=== PATIENT | male | born 1945 | race Caucasian/White ===

== ENCOUNTER → 2016-11-12 | Outpatient (CLI) | payer OTHER, MEDICARE | LOC: BMCIMAGING 16:23 | PROVIDERS: ATTEND Emergency Medicine | DX: T14.90 Injury, unspecified (principal); W18.39XA Other fall on same level, initial encounter; Y93.02 Activity, running ==

== ENCOUNTER → 2016-11-15 | Outpatient (CLI) | payer OTHER, MEDICARE | LOC: BMCIMAGING 09:37 | PROVIDERS: ATTEND Family Medicine | DX: M25.531 Pain in right wrist (principal); M19.041 Primary osteoarthritis, right hand ==

== ENCOUNTER 2017-01-24 09:40 | Day surgery (SDC) | payer OTHER, MEDICARE ==
[2017-01-24] MEDS ORDERED: ceFAZolin 2 GM/DEXTROSE 100 ML IV ONE (10:01)
[2017-01-24] MEDS ORDERED: LR 1,000 ML IV ONE (10:02)
[2017-01-24] MEDS ORDERED: LIDOCAINE 1% 2 ML INJ ID PRN (10:02)
[2017-01-24] MEDS ORDERED: BUPIVACAINE/EPI 0.5% 30 ML SDV ONE (10:20)
[2017-01-24] MEDS ORDERED: PROPOFOL 200 MG/20 ML VIAL ONE (10:24)
[2017-01-24] MEDS ORDERED: fentaNYL 100 MCG/2 ML INJ ONE ×3 (10:24→13:27)
[2017-01-24] MEDS ORDERED: DEXAMETHASONE 4 MG/ML VIAL ONE (10:24)
[2017-01-24] MEDS ORDERED: LIDOCAINE 2% 5 ML SDV ONE (10:25)
[2017-01-24] MEDS ORDERED: ONDANSETRON 4 MG/2 ML VIAL ONE (10:25)
--- NOTE | 2017-01-24 10:51 | PDHPUP ---
History & Physical Update H&P update statement: This history and physical update is based on an assessment of the patient which was completed after admission or registration (within 24 hours), but prior to the surgery/procedure.
--- NOTE | 2017-01-24 10:52 | PDANEPAE ---
ANE Past Medical History - Cardiovascular History Hx Hypertension: No Hx Arrhythmias: No Hx Chest Pain: No Hx Coronary Artery / Peripheral Vascular Disease: No Hx CHF / Valvular Disease: No Hx Palpitations: No Cardiovascular History Comment: murmur - Pulmonary History Hx COPD: No Hx Asthma/Reactive Airway Disease: No Hx Recent Upper Respiratory Infection: No Hx Oxygen in Use at Home: No Hx Sleep Apnea: No Sleep Apnea Screening Result - Last Documented: Negative - Neurologic History Hx Cerebrovascular Accident: No Hx Seizures: No Hx Dementia: No - Endocrine History Hx Diabetes: No Hypothyroid: No Hyperthyroid: No Obesity: no - Renal History Hx Renal Disorders: No - Liver History Hx Hepatic Disorders: No - Neurological & Psychiatric Hx Hx Neurological and Psychiatric Disorders: No - Cancer History Hx Cancer: No - Congenital Disorder History Hx Congenital Disorders: No - GI History GERD: no Hx Gastrointestinal Disorders: No - Other Health History Other Health History: dyslipidemia - Chronic Pain History Chronic Pain: No - Surgical History Prior Surgeries: colonscopy, rotator cuff repair 20yrs ago. fx humerus 10 yrs ago ANE Review of Systems Review of Systems: - Exercise capacity METS (RN): 6 METS ANE Patient History - Allergies Allergies/Adverse Reactions: scallops Allergy (Verified 01/24/17 10:14) Sulfa (Sulfonamide Antibiotics) Allergy (Verified 01/08/17 11:15) - Home Medications Home Medications: Aspirin EC 81 mg (*) 01/08/17 [Last Taken 01/17/17] Atorvastatin Calcium 01/08/17 [Last Taken 01/23/17] Multi-Vitamin Daily 01/08/17 [Last Taken 01/17/17] Maurepas 3 1,000 mg Softgel 01/08/17 [Last Taken 01/17/17] - NPO status NPO Since - Liquids (Date): 01/23/17 NPO Since - Liquids (Time): 23:30 NPO Since - Solids (Date): 01/23/17 NPO Since - Solids (Time): 23:30 - Anes Hx Anes Hx: no prior problems - Smoking Hx Smoking Status: Never smoked - Alcohol Use Alcohol Use: Rarely - Family Anes Hx Family Anes Hx: neg - N/A Family Hx Anesthesia Complications: none ANE Labs/Vital Signs - Vital Signs Blood Pressure: 143/80 Heart Rate: 56 Respiratory Rate: 14 O2 Sat (%): 96 Height: 172.72 cm Weight: 68.039 kg ANE Physical Exam - Airway Neck exam: FROM Mallampati Score: Class 2 Mouth exam: normal dental/mouth exam, olivo - Pulmonary Pulmonary: no respiratory distress, no rales or rhonchi, clear to auscultation - Cardiovascular Cardiovascular: regular rate and rhythym, systolic murmur - ASA Status ASA Status: II ANE Anesthesia Plan Anesthesia Plan: GA w LMA Total IV Anesthesia: No
[2017-01-24] MEDS ORDERED: OXYCODONE/APAP 5/325 TAB PO PRN (10:53)
[2017-01-24] MEDS ORDERED: PROMETHAZINE HCL 25 MG/ML INJ IVP PRN (10:53)
[2017-01-24] MEDS ORDERED: ACETAMINOPHEN 500 MG TAB PO PRN (10:53)
[2017-01-24] MEDS ORDERED: ONDANSETRON 4 MG/2 ML VIAL IVP PRN (10:53)
[2017-01-24] MEDS ORDERED: MEPERIDINE 25 MG/ML SYR IVP PRN (10:53)
[2017-01-24] MEDS ORDERED: HYDROCODONE/APAP 5/325 TAB PO PRN (10:53)
[2017-01-24] MEDS ORDERED: NALOXONE HCL 0.4 MG/ML INJ IVP PRN (10:53)
[2017-01-24] MEDS ORDERED: LR 500 ML IV PRN (10:53)
[2017-01-24] MEDS ORDERED: GLYCOPYRROLATE 0.2 MG/1 ML VIAL ONE (11:32)
[2017-01-24] MEDS ORDERED: ENALAPRILAT DIHYDRATE 1.25 MG/ML VIAL ONE (11:48)
[2017-01-24] MEDS ORDERED: KETOROLAC 30 MG/1 ML SDV ONE (12:52)
[2017-01-24] MEDS: fentaNYL 100 MCG/2 ML INJ IVP PRN ×2 (13:29→13:46)
--- NOTE | 2017-01-24 13:47 | POSTANESTH ---
Post Anesthetic Evaluation Cardiovascular Status: Normal, Stable Respiratory Status: Normal, Stable Level of Consciousness/Mental Status: Can Participate in Eval Pain Control: Adequate, Prn Tx Ordered Nausea/Vomiting Control: Adequate, Prn Tx Ordered Complications Possibly Related to Anesthesia: None Noted
[2017-01-24] MEDS ORDERED: OXYCODONE/APAP 5/325 TAB ONE (13:48)
[2017-01-24 14:41] VITALS: PULSE 57; RESP 16; TEMP 97.9
[2017-01-24 15:21] VITALS: BP 130/75; O2SAT 86
== END 2017-01-24 15:30 | disposition home or self-care (01) ==
LOC: FSGY 09:40
PROVIDERS: ATTEND Orthopaedic Surgery
PROC: 0MN14ZZ Release Right Shoulder Bursa and Ligament, Percutaneous Endoscopic Approach (ICD-10-PCS; principal; 2017-01-24 11:30)
PROC: 0LS14ZZ Reposition Right Shoulder Tendon, Percutaneous Endoscopic Approach (ICD-10-PCS; principal; 2017-01-24 11:30)
PROC: 0LQ14ZZ Repair Right Shoulder Tendon, Percutaneous Endoscopic Approach (ICD-10-PCS; principal; 2017-01-24 11:30)
DX: M75.121 Complete rotator cuff tear or rupture of right shoulder, not specified as traumatic (principal); N40.0 Benign prostatic hyperplasia without lower urinary tract symptoms; E78.5 Hyperlipidemia, unspecified; E03.9 Hypothyroidism, unspecified
CPT/HCPCS: C1713; J0171; J0690; J1100; J1885; J2405; J2704; J3010

== ENCOUNTER → 2017-06-28 | Outpatient (CLI) | payer OTHER, MEDICARE | LOC: BMCIMAGING 12:23 | PROVIDERS: ATTEND Emergency Medicine | DX: R05 Cough (principal) ==

== ENCOUNTER → 2018-08-06 | Outpatient (CLI) | payer OTHER, MEDICARE | LOC: BMCIMAGING 11:08 | PROVIDERS: ATTEND Family Medicine | DX: Z13.828 Encounter for screening for other musculoskeletal disorder (principal) ==